=== PATIENT | male | born 1955 | race Caucasian/White ===

== ENCOUNTER 2025-01-20 08:50 | Day surgery (SDC) | payer MEDICARE, SELFPAY ==
--- OUTSIDE RECORDS SUMMARY | 2024-12-02 16:20 | XMS_ITS | Patient Health Record ---
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 Name Role Phone Marce JACKSON, Bharati Primary Care Provider Jasbir Corley Jr [phone] Allergies No Known Allergies Reason For Referral No Information Medications Medication SIG (Take, Route, Frequency, Duration) Notes Start Date End Date Status Sertraline HCl 100 MG 1 tablet Orally On ce a day Active risperiDONE 2 MG 1 tablet Orally Once a day Active Rosuvastatin Calcium 10 MG 1 tablet Oral ly Once a day Active Social History Tobacco Use: Social History Observation Description Date Details (start date - stop date) Never Smoker NA - NA Tobacco Control (Standard) Question Answer Notes Tobacco use: Nonsmoker AUDIT-C (Standard) Question Answer Notes Did you have a drink containing alcohol in the p ast year? No Points 0 Interpretation Negative Problems Problem Type SNOMED Code ICD Code Onset Dates Problem Status W/U Status Risk Notes Problem Screening for malignant neoplasm of colon (929618265) Encounter for screening for malignant neoplasm of colon (Z12.11) Active confirmed Problem Pre-procedure evaluation check (979491593) Encounter for other preprocedural examination (Z01.818) Active confirmed Vital Signs Heart Rate 80 /min 11/20/2024 Blood pressure diastolic 01 mm Hg 11/20/2024 Height 68 in 11/20/2024 Blood pressure systolic 001 mm Hg 11/20/2024 Weight 179.6 lbs 11/20/2024 BMI 27.31 kg/m2 11/20/2024 Encounters Encounter Location Date Provider Diagnosis [facility] [address] [place] [address] 11/20/2024 Jasbir Arevalo Jr Encounter for screening for malignant neoplasm of colon Z12.11 ; Encounter for other preprocedural examination Z01.818 and Family history of colon polyps, unspecified Z83.719 Assessments Encounter Date Diagnosis (ICD Code) Assessment Notes Treatment Notes Treatment Clinical Notes Section Notes 11/20/2024 Encounter for screening for malignant neoplasm of colon (ICD-10 - Z12.11) We discussed colonoscopy today. We discussed risks and benefits of the procedure today. He understands these and agrees to proceed. This will be scheduled at his convenience. 11/20/2024 Encounter for other preprocedural examination (ICD-10 - Z01.818) We discussed colonoscopy today. We discussed risks and benefits of the procedure today. He understands these and agrees to proceed. This will be scheduled at his convenience. 11/20/2024 Family history of colon polyps, unspecified (ICD-10 - Z83.719) We discussed colonoscopy today. We discussed risks and benefits of the procedure today. He understands these and agrees to proceed. This will be scheduled at his convenience. Plan Of Treatment Future Test Test Name Order Date COLONOSCOPY 11/20/2024 Next Appt Details Provider Name:Jasbir roberson Jr, 01/20/2025 10:20:00 AM, [address] [place] [address] , [place], [place], [id number], Insurance Providers Payer Name Payer Address Payer Phone Subscriber Number Group Number Insured Name Patient Relationship to Insured Coverage Start Date Coverage End Date [facility] [address] [place] [address] [phone] [id number] ALFREDO HENRIQUEZ Self - patient is the insured Medical (General) History Medical History History ICD Code Anxiety/depression Hyperlipidemia Elevated blood sugar Mild intellectual disability Elevated PSA
[2025-01-16 15:51] VITALS: BMI 27.3
--- NOTE | 2025-01-19 09:29 | HO.ANESPROP2 ---
Documented by User: Johana Hansen NP 01/19/25 09:29 HPI - Anesthesia Eval Consult details Narrative: 69yo M for Colonoscopy FOR[facility]LY [facility] Past Medical History Medical History Elevated PSA Mild intellectual disability Elevated blood sugar Hyperlipidemia Anxiety and depression Surgical History Surgical History No pertinent past surgical history Social History Social History Patient Tobacco Use Status: Never used Tobacco Have you been hit, kicked, punched, or otherwise hurt by someone within the past year? If so, by whom?: No Are you DNR?: No Advance Directives: No Advance Directives Information Provided: Yes Meds Allergies Allergy/AdvReac Type Severity Reaction Status Date / Time No Known Allergies Allergy Verified 01/16/25 15:52 Home Medications ?Medication ?Instructions ?Recorded ?Confirmed ?Last Taken ?Type risperidone 2 mg tablet 2 mg PO BEDTIME 01/16/25 01/16/25 01/20/25 History rosuvastatin 10 mg tablet 10 mg PO BEDTIME 01/16/25 01/16/25 01/19/25 History sertraline 100 mg tablet 100 mg PO DAILY 01/16/25 01/16/25 01/20/25 History Exam Height,Weight and Vital Signs: Height 5 ft 8 in Weight 81.363 kg Assessment and Plan Assessment Anesthesia Assessment: Chart Reviewed Documented by User: Paula Gramajo MD 01/20/25 09:46 [facility] Past Medical History Medical History Elevated PSA Mild intellectual disability Elevated blood sugar Hyperlipidemia Anxiety and depression Surgical History Surgical History No pertinent past surgical history History of Problems with Anesthesia: No Social History Social History Patient Tobacco Use Status: Never used Tobacco Have you been hit, kicked, punched, or otherwise hurt by someone within the past year? If so, by whom?: No Are you DNR?: No Advance Directives: No Advance Directives Information Provided: Yes Meds Allergies Allergy/AdvReac Type Severity Reaction Status Date / Time No Known Allergies Allergy Verified 01/16/25 15:52 Home Medications ?Medication ?Instructions ?Recorded ?Confirmed ?Last Taken ?Type risperidone 2 mg tablet 2 mg PO BEDTIME 01/16/25 01/16/25 01/20/25 History rosuvastatin 10 mg tablet 10 mg PO BEDTIME 01/16/25 01/16/25 01/19/25 History sertraline 100 mg tablet 100 mg PO DAILY 01/16/25 01/16/25 01/20/25 History Exam Airway Mallampati Class: III TM Dist: >3cm Neck ROM: Full Loose/Missing/Broken Teeth: No Heart: RRR Lungs: CTA Assessment and Plan Assessment Anesthesia Assessment: Anesthesia Plan Discussed Final Anesthetic Review History of Problems with Anesthesia: No NPO: Yes ASA Class: II Final Preanesthetic Review: Meds/Allgs Chart Reviewed and Anes Risks/Benef Reviewed Patient Risk: Low Procedure Risk: Low Anesthetic Plan Anesthetic Plan: MAC: Disposition: Standard PACU
[2025-01-20] VITALS (9 sets, daily range): BP systolic 109–139; BP diastolic 75–91; PULSE 75–113; RESP 18–20; TEMP 36.4–37; O2SAT 93–96; BMI 26.2
--- NOTE | ~2025-01-20 | XR_ITS ---
EXAMINATION: XR CHEST 1 VIEW HISTORY: Reduced o2 sats post procedure COMPARISON: There are no prior studies available for comparison. FINDINGS: A single AP portable view of the chest performed at 1:02 PM is submitted. There are low lung volumes. Linear opacities are seen at both bases consistent with subsegmental atelectasis. There is no pleural effusion, pneumothorax, or pulmonary vascular congestion. The heart is normal in size. There is degenerative disc disease and scoliosis of the spine. XR/XR chest 1V IMPRESSION: Low lung volumes. Bibasilar subsegmental atelectasis. Electronically signed by: Jhony May MD 01/20/2025 01:21 PM EDT
[2025-01-20] MEDS: Lactated Ringers 1,000 ML 100 ML IVCONT (09:16)
--- NOTE | 2025-01-20 10:16 | MHC.SHP ---
Pre-Procedural Eval Section A - 24 Hr Update-Section A only Date of Service: 01/20/25 Section B - Complete if H&P > 30 days Chief Complaint: screening Details of Present Illness: see H&P no changes Relevant Family History (Specify if Yes): No Relevant Social History: None Present Medications: see Short Stay Collaborative assessment Medical History: No relevant PMH History of Previous Operations: No relevant previous surgery Allergies: Allergies Allergy/AdvReac Type Severity Reaction Status Date / Time No Known Allergies Allergy Verified 01/16/25 15:52 Review of Systems Sugical H&P ROS: Negative: Constitution, Cardiovascular, Respiratory, Neurological, Psychiatric, Hem-Onc, Allergic/Immunologic, Gastrointestinal, Genitourinary, Musculoskeletal, Integumentary, Endocrine and Eyes/Ears/Nose/Throat Exam Surgical H&P Exam: Normal: HEENT, Normal: Heart, Normal: Lungs, Normal: Extremities, Normal: Abdomen, Normal: Skin and Normal: Neurological Plan Diagnosis/Plan: Unchanged I have reviewed the history and physical and performed a pertinent physical examination on my patient. No changes have occurred unless specified. Time Spent With Patient Time: Total time managing care of this patient today ____ minutes.
--- NOTE | 2025-01-20 12:02 | OP_ITS ---
DATE OF SERVICE: 01/20/2025 SURGEON: Jasbir Arevalo MD PREOPERATIVE DIAGNOSIS: POSTOPERATIVE DIAGNOSIS: PROCEDURE PERFORMED: Colonoscopy to the terminal ileum with snare polypectomy, and Tasha ink marking. ESTIMATED BLOOD LOSS: COMPLICATIONS: ANESTHESIA: Monitored anesthesia care. ASSISTANTS: SPECIMENS: DESCRIPTION OF PROCEDURE: A history and physical performed. The risks and benefits of the procedure were explained to the patient. Informed consent was obtained. The patient was placed in the left lateral decubitus position. A digital rectal exam was performed and was found to be normal. The Olympus pediatric video colonoscope was introduced into the rectum and advanced to the cecum. The cecum was identified by transillumination, palpation, and identification of ileocecal valve. Examination was performed. The scope was removed. He tolerated the procedure well and was returned to the recovery area in stable condition. FINDINGS: The terminal ileum was briefly examined and appeared normal. Visualized colonic mucosa was normal. In the right colon with a 20 mm polyp which was removed in piecemeal fashion with a snare and recovered with a Argueta net. This resulted in having to remove and reinsert the endoscope several times, making the procedure extended and difficult. The area was marked with Tasha ink to facilitate followup colonoscopy. In the hepatic flexure, was a 6 mm polyp which was removed with a snare, but could not be recovered. Two polyps were identified and removed with a hot snare located at about 60 to 70 cm. These were recovered with suction. There was mild sigmoid diverticulosis. The quality of the prep was good. The sigmoid was tortuous. Retroflexed examination showed small internal hemorrhoids. IMPRESSION: Colon polyps. RECOMMENDATION: Follow up the biopsy results. MD BREEZY Corley/KASSANDRAL / [id number]
--- NOTE | 2025-01-20 14:02 | PC.NURSE ---
small bruise approx. dime size noted after IV removal. pressure dressing applied.
== END 2025-01-20 14:06 | disposition home or self-care (01) ==
PROVIDERS: PCP Internal Medicine Geriatric Medicine; Visit Provider Internal Medicine Gastroenterology
PROC: 0DJD8ZZ Inspection of Lower Intestinal Tract, Via Natural or Artificial Opening Endoscopic (ICD-10-PCS; CPT 45378; principal; 2025-01-20 10:20)
DX: Z12.11 Encounter for screening for malignant neoplasm of colon (principal); D12.2 Benign neoplasm of ascending colon; D12.4 Benign neoplasm of descending colon; K57.30 Diverticulosis of large intestine without perforation or abscess without bleeding; K56.2 Volvulus; K64.8 Other hemorrhoids; E78.5 Hyperlipidemia, unspecified
CPT/HCPCS: 45385; 45381; 71045; 88305

== ENCOUNTER → 2025-01-20 13:02 | Outpatient (BNV) | payer MEDICARE, SELFPAY | PROVIDERS: PCP Internal Medicine Geriatric Medicine; Visit Provider Radiology Diagnostic Radiology | DX: J98.11 Atelectasis (principal) | CPT/HCPCS: 71045 ==